=== PATIENT | female | born 1935 | race Two or more races ===

== ENCOUNTER 2021-01-20 11:33 | Outpatient (CLI) | payer OTHER ==
[~2021-01-20 11:33] MED LIST: AZITHROMYCIN500 MG PO; LEVAQUIN500 MG PO; TUSICOF LIQUID120 ML PO
== END 2021-01-20 11:40 | disposition home or self-care (01) ==
LOC: RAD 11:33
PROVIDERS: ATTEND Family Medicine Geriatric Medicine
DX: M17.0 Bilateral primary osteoarthritis of knee (principal); M70.51 Other bursitis of knee, right knee